=== PATIENT | female | born 1950 | race Caucasian/White ===

== ENCOUNTER 2016-07-29 20:38 | Emergency (ER) | payer MEDICAID ==
[2016-07-29] MEDS ORDERED: ONDANSETRON ODT 4 MG TABLET TL STA (20:53)
[2016-07-29] MEDS ORDERED: DICYCLOMINE 10 MG CAPSULE PO STA (20:54)
[2016-07-29] MEDS ORDERED: DICYCLOMINE 10 MG CAPSULE PO ONE (20:58)
[2016-07-29] MEDS ORDERED: ONDANSETRON ODT 4 MG TABLET ONE (20:58)
== END 2016-07-29 21:26 | disposition home or self-care (01) ==
DX: K52.9 Noninfective gastroenteritis and colitis, unspecified (principal); E11.9 Type 2 diabetes mellitus without complications; Z79.4 Long term (current) use of insulin; Z79.84 Long term (current) use of oral hypoglycemic drugs; E78.00 Pure hypercholesterolemia, unspecified
CPT/HCPCS: 99283; A9270; Q0162

== ENCOUNTER 2017-08-03 17:27 | Emergency (ER) | payer MEDICARE, OTHER ==
--- NOTE | 2017-08-03 18:33 | ED Physician Documentation ---
History of Present Illness - Stated complaint Stated Complaint: R EYE PX - Chief complaint Chief Complaint: Heent - History obtained from History obtained from: Patient - History of Present Illness Timing: Today Pain level max: 0 Pain level now: 0 Improved by: nothing Worsened by: looking L causes diploplia. - Additonal information Additional information: Last week started with diploplia. Referred to ophthalmology for diploplia. Seen by ophthalmology today and dx with cranial nerve III palsy. Sent here to r /o orbital cellulitis with CT scan and for sed rate for temporal arteritis, though clinically ophthalmology doubts this. Review of Systems Ten Systems: 10 systems reviewed and negative Constitutional: denies: Fever, Chills Nose: reports: Congestion, Sinus pressure / pain Throat: denies: Sore throat Cardiac: denies: Chest pain / pressure Respiratory: denies: Cough GI: denies: Nausea, Vomiting, Diarrhea Skin: denies: Rash Musculoskeletal: denies: Neck pain, Back pain Neurologic: denies: Headache PD PAST MEDICAL HISTORY - Past Medical History Cardiovascular: High cholesterol Endocrine/Autoimmune: Type 2 diabetes - Past Surgical History Past Surgical History: Yes General: Cholecystectomy - Present Medications Home Medications: Ambulatory Orders Medication Instructions Recorded Confirmed Gabapentin 300 mg PO DAILY 06/27/14 07/29/16 Metformin HCl [Fortamet] 1,000 mg ORAL DAILY 06/27/14 07/29/16 Pravastatin Sodium 20 mg ORAL DAILY 06/27/14 07/29/16 Dicyclomine [Bentyl] 10 mg PO QID #12 capsule 07/29/16 Insulin Glargine [Lantus] 20 units SQ DAILY PM 07/29/16 07/29/16 Insulin Glulisine [Apidra] 14 units SQ TID 07/29/16 07/29/16 Ondansetron Odt [Zofran] 4 mg TL Q6H PRN #14 tablet 07/29/16 - Allergies Allergies/Adverse Reactions: Allergies Allergy/AdvReac Type Severity Reaction Status Date / Time No Known Drug Allergies Allergy Verified 07/29/16 20:47 - Social History Does the pt smoke?: No Smoking Status: Never smoker Does the pt drink ETOH?: No Does the pt have substance abuse?: No - Immunizations Immunizations are current?: Yes - POLST Patient has POLST: No PD ED PE NORMAL - Vitals Vital signs reviewed: Yes - General General: Alert and oriented X 3, No acute distress - HEENT HEENT: Moist mucous membranes - Neck Neck: Supple, no meningeal sign - Cardiac Cardiac: RRR, Strong equal pulses - Respiratory Respiratory: No respiratory distress, Clear bilaterally - Abdomen Abdomen: Soft, Non tender, Non distended - Derm Derm: Warm and dry - Neuro Neuro: Alert and oriented X 3, Other (R eye cranial nerve III palsy) - Psych Psych: Normal mood, Normal affect Results - Vitals Vitals: Vital Signs - 24 hr 08/03/17 08/03/17 08/03/17 17:40 20:22 20:42 Temperature 36.4 C L 36.8 C Heart Rate 88 79 Respiratory 17 16 Rate Blood Pressure 155/71 H 171/75 H O2 Saturation 98 98 Oxygen O2 Source Room air - Labs Labs: Laboratory Tests 08/03/17 08/03/17 08/03/17 18:24 18:24 18:24 WBC 9.1 RBC 4.80 Hgb 12.7 Hct 38.7 MCV 80.7 L MCH 26.5 L MCHC 32.9 RDW 13.6 Plt Count 221 MPV 8.3 Neut # 5.1 Lymph # 3.0 Powell # 0.7 Eos # 0.2 Baso # 0.1 Absolute Nucleated RBC 0.00 Nucleated RBC % 0.0 ESR 19 Sodium 135 Potassium 3.5 Chloride 98 L Carbon Dioxide 28 Anion Gap 9.0 BUN 11 Creatinine 0.7 Estimated GFR (MDRD) 84 L Glucose 330 H Calcium 9.2 C-Reactive Protein 1.2 H - Rads (name of study) CT orbits Radiology: Prelim report reviewed, EMP read contemporaneously, See rad report ( Visualized intracranial contents are unremarkable. No evidence of intraorbital or periorbital cellulitis. Intraorbital contents are also unremarkable) PD MEDICAL DECISION MAKING - ED course Complexity details: reviewed results, re-evaluated patient, considered differential, d/w patient, d/w family ED course: Patient is a 67-year-old female who presents to the emergency department with her right eye cranial nerve III palsy for the past week. Unclear etiology. Has been followed by several specialists for this. She was sent here to rule out orbital cellulitis. No evidence of orbital cellulitis on clinical exam, CT scan. Also no evidence of temporal arteritis. She is very well-appearing, nontoxic. Would recommend further evaluation with her doctor. Patient and family counseled regarding signs and symptoms for which I believe and urgent re- evaluation would be necessary. Patient with good understanding of and agreement to plan and is comfortable going home at this time This document was made in part using voice recognition software. While efforts are made to proofread this document, sound alike and grammatical errors may occur. Neurological exam is otherwise normal, normal gait. No evidence of stroke Departure - Departure Disposition: 01 Home, Self Care Clinical Impression: Cranial nerve III palsy Qualifiers: Laterality: right Qualified Code(s): H49.01 - Third [oculomotor] nerve palsy, right eye Condition: Good Follow-Up: your,doctor in 3 days [Other] Comments: There is no sign of infection on your CT scan today. Follow-up with your telehealth nurse educator and primary care provider for further care. Discharge Date/Time: 08/03/17 20:43
[2017-08-03 18:36] LABS: BASOPHILS # (AUTO) 0.1 10^3/uL (0.0-0.1); EOSINOPHILS # (AUTO) 0.2 10^3/uL (0.0-0.7); EOSINOPHILS % (AUTO) 1.7 %; HGB - HEMOGLOBIN 12.7 g/dL (12.0-16.0); LYMPHOCYTES % (AUTO) 33.1 %; MEAN CORPUSCULAR HEMOGLOBIN 26.5 pg (27.0-31.0); MEAN CORPUSCULAR HGB CONC 32.9 g/dL (32.0-36.0); MEAN CORPUSCULAR VOLUME 80.7 fL (81.0-99.0); MEAN PLATELET VOLUME 8.3 fL (7.9-10.8); MONOCYTES # (AUTO) 0.7 10^3/uL (0.0-1.0); MONOCYTES % (AUTO) 8.2 %; NEUTROPHILS # (AUTO) 5.1 10^3/uL (1.5-6.6); PLT - PLATELET COUNT 221 10^3/uL (130-450); RED CELL DISTRIBUTION WIDTH 13.6 % (12.0-15.0); WHITE BLOOD COUNT 9.1 x10^3/uL (4.8-10.8)
[2017-08-03 18:49] LABS: CALCIUM 9.2 mg/dL (8.5-10.3); CREATININE 0.7 mg/dL (0.4-1.0); CRP - C-REACTIVE PROTEIN 1.2 mg/dL (0-1.0)
[2017-08-03] MEDS ORDERED: IOPAMIDOL-300 100 ML VIAL ONE (19:19)
[2017-08-03] MEDS ORDERED: IOPAMIDOL-300 100 ML VIAL IVP ONE (19:38)
--- NOTE | 2017-08-03 20:21 | CT Preliminary Report ---
Exam: CT ORBITS W/ Impression: Visualized intracranial contents are relatively unremarkable. No evidence of an intraorbital or periorbital cellulitis. Intraorbital contents are unremarkable by C T. SITE ID: [id number]
--- NOTE | 2017-08-03 20:33 | CT Report ---
EXAM: CT MAXILLOFACIAL WITH CONTRAST CLINICAL HISTORY: Right third nerve palsy, concern for orbital cellulitis. COMPARISON: None. TECHNIQUE: Axial images were acquired of the face after administration of intravenous contrast. Coron al and Sagittal reconstructions are created from source data. In accordance with CT protocol optimization, one or more of the following dose reduction techniques w ere utilized for this exam: automated exposure control, adjustment of mA and/or KV based on patient s ize, or use of iterative reconstructive technique. FINDINGS: Visualized intracranial contents show no masses. Ventricular size is normal. Orbits are normal in size, shape, and position. Optic nerves are normal. Extraocular muscles are norm al. No intraconal abnormalities. No evident abnormal enhancement or appearance of either cavernous sinus. Fairly extensive arterial calcification is demonstrated through the siphon. Mastoids are clear. Paranasal sinuses are unremarkable. Upper and lower lids are relatively unremarkable. IMPRESSION: Visualized intracranial contents are relatively unremarkable. No convincing evidence of an intraorbital or periorbital cellulitis. Intraorbital contents are unrema rkable by CT. Referring Provider Line: [phone] SITE ID: [id number]
[2017-08-03 20:42] VITALS: BP 171/75
== END 2017-08-03 20:43 | disposition home or self-care (01) ==
LOC: ED 17:27
DX: H49.01 Third [oculomotor] nerve palsy, right eye (principal); E78.00 Pure hypercholesterolemia, unspecified; E11.9 Type 2 diabetes mellitus without complications; Z79.4 Long term (current) use of insulin
CPT/HCPCS: 36415; 70481; 80048; 85025; 85651; 86140; 99283; 99284; Q9967

== ENCOUNTER 2017-08-07 20:43 | Emergency (ER) | payer MEDICARE, OTHER ==
--- NOTE | 2017-08-07 23:52 | ED Physician Documentation ---
PD HPI HEADACHE - Stated complaint Stated Complaint: HEADACHE/VOMITING - Chief complaint Chief Complaint: Neuro - History obtained from History obtained from: Patient - History of Present Illness Timing - onset: How many weeks ago (2) Timing - details: Gradual onset, Constant Pain level now: 6 Location: Front, Right, Other (pain is actually medial to right eye and not teodoro headache per se; she denies eye pain) Quality: Aching Associated symptoms: Nausea, Vision changes (diplopia). No: Fever, Vomiting, Weakness, Numbness Improved by: Nothing Worsened by: Other (no exacerbating factors) Similar symptoms before: Diagnosis (CN III palsy) Recently seen: Emergency Dept - Additional information Additional information: patient has had diplopia for two weeks, was evaluated by ophthalmology and subsequently evaluated in this emergency department for days ago at which time she had CT of the orbits, which was unremarkable. She has a follow-up appointment scheduled in two days with the edge grinder machine. She returns the emergency department at this time for worsening pain around the right eye Review of Systems Constitutional: reports: Reviewed and negative Eyes: reports: Other (diplopia). denies: Loss of vision, Decreased vision, Photophobia Nose: denies: Rhinorrhea / runny nose, Congestion, Sinus pressure / pain Throat: denies: Sore throat Neurologic: reports: Headache. denies: Generalized weakness, Focal weakness, Numbness PD PAST MEDICAL HISTORY - Past Medical History Cardiovascular: High cholesterol Endocrine/Autoimmune: Type 2 diabetes - Past Surgical History Past Surgical History: Yes General: Cholecystectomy - Present Medications Home Medications: Ambulatory Orders Medication Instructions Recorded Confirmed Gabapentin 300 mg PO DAILY 06/27/14 07/29/16 Metformin HCl [Fortamet] 1,000 mg ORAL DAILY 06/27/14 07/29/16 Pravastatin Sodium 20 mg ORAL DAILY 06/27/14 07/29/16 Dicyclomine [Bentyl] 10 mg PO QID #12 capsule 07/29/16 Insulin Glargine [Lantus] 20 units SQ DAILY PM 07/29/16 07/29/16 Insulin Glulisine [Apidra] 14 units SQ TID 07/29/16 07/29/16 Ondansetron Odt [Zofran] 4 mg TL Q6H PRN #14 tablet 07/29/16 - Allergies Allergies/Adverse Reactions: Allergies Allergy/AdvReac Type Severity Reaction Status Date / Time No Known Drug Allergies Allergy Verified 08/07/17 21:22 - Social History Does the pt smoke?: No Smoking Status: Never smoker Does the pt drink ETOH?: No Does the pt have substance abuse?: No - Immunizations Immunizations are current?: Yes - POLST Patient has POLST: No PD ED PE NORMAL - Vitals Vital signs reviewed: Yes - General General: Alert and oriented X 3, No acute distress, Well developed/nourished - HEENT HEENT: Other (right CN III palsy: right eye exhibits lateral deviation and slightly enlarged pupil (1-2 mm larger diameter compared to left)) - Neck Neck: Supple, no meningeal sign - Neuro Neuro: Alert and oriented X 3, No motor deficit, No sensory deficit PD ED PE EXPANDED - Neuro Neuro: Alert and Oriented X 3, CN deficit (right III) Results - Vitals Vitals: Oxygen O2 Source Room air - Rads (name of study) CTA head Radiology: Prelim report reviewed, See rad report PD MEDICAL DECISION MAKING - ED course Complexity details: reviewed old records, reviewed results, re-evaluated patient , considered differential, d/w patient ED course: D/w Dr. Vela (patient cannot recall the name of the edge grinder machine who evaluated her, but she says it was [facility]; Dr. Vela is hand inserter operator for [facility]). She recommends CTA head. Results of this were then discussed ( specifically, 2mm aneurysm noted); agrees with plan, which is to discharge patient and have patient keep f/u appointment as scheduled for tomorrow. there is no evidence of aneurysm rupture, and thus options for treatment can wait for outpatient f/u. Departure - Departure Disposition: 01 Home, Self Care Clinical Impression: Intracerebral aneurysm Cranial nerve III palsy Qualifiers: Laterality: right Qualified Code(s): H49.01 - Third [oculomotor] nerve palsy, right eye Condition: Good Instructions: ED Double Vision Comments: Follow up with your edge grinder machine tomorrow as scheduled. Discharge Date/Time: 08/08/17 04:00
[2017-08-08] MEDS ORDERED: oxyCOD/ACETAMIN 5 MG/325 MG TABLET PO STA (00:18)
[2017-08-08] MEDS ORDERED: oxyCODONE/ACET 5/325 Prepack 4 PO STA (00:18)
[2017-08-08] MEDS ORDERED: IOPAMIDOL-300 100 ML VIAL ONE (01:22)
[2017-08-08] MEDS ORDERED: ONDANSETRON 4 MG/2 ML VIAL IVP STA (01:50)
[2017-08-08] MEDS ORDERED: SODIUM CHLORIDE 0.9% 500 ML IV STA (01:51)
[2017-08-08] MEDS ORDERED: IOPAMIDOL-300 100 ML VIAL IVP ONE (01:53)
--- NOTE | 2017-08-08 02:35 | CT Preliminary Report ---
Exam: CT HEAD ANGIO IMPRESSION: 1. No acute intracranial process or abnormal brain parenchymal enhancement. 2. Suspect 2 x 2 mm left posterior communicating segment ICA aneurysm. 3. 50% stenosis of the right supraclinoid ICA due to atherosclerosis. 4. Patent remaining intracranial arteries. [facility] SITE ID: [id number]
--- NOTE | 2017-08-08 02:45 | CT Report ---
EXAM: CT ANGIOGRAM HEAD CT SCAN OF THE HEAD WITHOUT AND WITH CONTRAST EXAM DATE: 08/08/2017 01:58 AM CLINICAL HISTORY: CN III palsy, headache. COMPARISON: Orbit CT from 08/13/2017. TECHNIQUE: - CT Scan Head: Using a multidetector scanner, axial images were acquired from the foramen magnum to the skull vertex prior to and following contrast administration. - CT Angiogram: Using a multidetector scanner, high-resolution axial images were acquired from the sk ull base through vertex following rapid infusion of intravenous contrast. Reformats: Multiplanar MIP reformats were reconstructed. Nascet criteria used for stenosis measurement. IV Contrast: 80 mL of Isovue 300. In accordance with CT protocol optimization, one or more of the following dose reduction techniques w ere utilized for this exam: automated exposure control, adjustment of mA and/or KV based on patient s ize, or use of iterative reconstructive technique. FINDINGS: NON-CONTRAST HEAD: Parenchyma: No intraparenchymal hemorrhage. No evidence of mass, midline shift, or CT findings of inf arction. Yi-white differentiation is distinct. Extraaxial Spaces: Normal for age. No subdural or epidural collections identified. Ventricles: Normal in size and position. Sinuses and orbits: Postsurgical changes from cataract extractions are noted in the globes. The paran talya and mastoid sinuses are not opacified. Bones: No evidence of fracture or calvarial defect. Other: Mild intracranial atherosclerosis is noted. POST-CONTRAST HEAD: No abnormal enhancement. There is normal contrast opacification in the dural venous sinuses. The internal carotid arteries are patent from the superior cervical to the supraclinoid portions. Vinod cified plaque is present in the bilateral carotid siphons resulting in right supraclinoid ICA measuri ng 50%. A 2 x 2 mm inferiorly directed outpouching from the posterior communicating segment of the le ft ICA is noted (image 61, series 14) just proximal to the takeoff for the anterior choroidal artery, suspicious for an aneurysm. The bilateral A1, A2, M1, and M2 segments are patent. A normal caliber anterior communicating artery is identified. In the posterior circulation, the bilateral V4 segments are patent but demonstrate focal stenosis on the right measuring 50% and even less on the left. The PICAs are well-demonstrated. The basilar arter y is widely patent throughout its course to the terminus. There is normal contrast opacification in t he superior cerebellar and posterior cerebral arteries. The right posterior communicating artery is p resent. IMPRESSION: 1. No acute intracranial process or abnormal brain parenchymal enhancement. 2. Suspect 2 x 2 mm left posterior communicating segment ICA aneurysm. 3. 50% stenosis of the right supraclinoid ICA due to atherosclerosis. 4. Patent remaining intracranial arteries. [facility] Referring Provider Line: [phone] SITE ID: [id number]
[2017-08-08 03:55] VITALS: BP 175/81
== END 2017-08-08 04:00 | disposition home or self-care (01) ==
LOC: ED 20:43
DX: I67.1 Cerebral aneurysm, nonruptured (principal); H49.01 Third [oculomotor] nerve palsy, right eye
CPT/HCPCS: 70496; 96361; 96374; 99283; 99284; A9270; Q9967

== ENCOUNTER 2018-07-25 17:59 | Emergency (ER) | payer MEDICARE, MEDICAID ==
[2018-07-25] MEDS ORDERED: MECLIZINE 12.5 MG TABLET PO STA (18:29)
--- NOTE | 2018-07-25 18:33 | ED Physician Documentation ---
PD HPI FOCAL NEURO - Stated complaint Stated Complaint: DIZZY - Chief complaint Chief Complaint: Neuro - History obtained from History obtained from: Patient - History of Present Illness Timing - onset: Today (Since noon she feels like she is spinning especially after she gets up or turns her head. She is noticed some strange sounds in her right ear. No weakness, numbness, tingling of the extremities. No chest pain or trouble breathing. Her blood sugar was in the 200s earlier today.) Review of Systems Constitutional: denies: Fever, Chills Eyes: denies: Loss of vision, Decreased vision Ears: reports: Ear pain, Foreign body. denies: Loss of hearing, Drainage/discharge Nose: denies: Rhinorrhea / runny nose Throat: denies: Sore throat PD PAST MEDICAL HISTORY - Past Medical History Cardiovascular: High cholesterol Endocrine/Autoimmune: Type 2 diabetes - Past Surgical History Past Surgical History: Yes General: Cholecystectomy - Present Medications Home Medications: Ambulatory Orders Medication Instructions Recorded Confirmed Gabapentin 300 mg PO DAILY 06/27/14 07/25/18 Metformin HCl [Fortamet] 1,000 mg ORAL DAILY 06/27/14 07/25/18 Insulin Glargine [Lantus] 20 units SQ DAILY PM 07/29/16 07/25/18 Insulin Glulisine [Apidra] 14 units SQ TID 07/29/16 07/25/18 Losartan Potassium 1 tab PO DAILY 07/25/18 07/25/18 Meclizine HCl 25 mg PO Q6H PRN #20 tab.chew 07/25/18 Pravastatin Sodium 1 tab PO DAILY 07/25/18 07/25/18 - Allergies Allergies/Adverse Reactions: Allergies Allergy/AdvReac Type Severity Reaction Status Date / Time No Known Drug Allergies Allergy Verified 07/25/18 18:06 - Social History Does the pt smoke?: No Smoking Status: Never smoker Does the pt drink ETOH?: No Does the pt have substance abuse?: No - Immunizations Immunizations are current?: Yes - POLST Patient has POLST: No PD ED PE NORMAL - Vitals Vital signs reviewed: Yes - General General: Alert and oriented X 3, No acute distress - HEENT HEENT: PERRL, EOMI (nystagmus on left), Other (FB in R ear canal) - Neck Neck: Supple, no meningeal sign, No bony TTP - Cardiac Cardiac: RRR, No murmur - Respiratory Respiratory: No respiratory distress, Clear bilaterally - Abdomen Abdomen: Normal bowel sounds, Soft, Non tender - Back Back: No CVA TTP, No spinal TTP - Derm Derm: Normal color, Warm and dry - Extremities Extremities: No edema, No calf tenderness / cord - Neuro Neuro: Alert and oriented X 3, merchandise director 2-12 intact, Normal speech, Other (normal finger-nose/heel to da silva testing.) Eye Opening: Spontaneous Motor: Obeys Commands Verbal: Oriented GCS Score: 15 - Psych Psych: Normal mood, Normal affect Results - Vitals Vitals: Vital Signs - 24 hr 07/25/18 18:04 Temperature 36.7 C Heart Rate 76 Respiratory 16 Rate Blood Pressure 181/70 H O2 Saturation 96 Oxygen O2 Source Room air - Labs Labs: Laboratory Tests 07/25/18 07/25/18 18:41 18:41 WBC 7.6 RBC 4.44 Hgb 12.4 Hct 35.6 L MCV 80.1 L MCH 28.0 MCHC 34.9 RDW 13.6 Plt Count 288 MPV 8.0 Neut # (Auto) 3.6 Lymph # (Auto) 3.1 [place] # (Auto) 0.7 Eos # (Auto) 0.2 Baso # (Auto) 0.1 Absolute Nucleated RBC 0.01 Nucleated RBC % 0.1 Sodium 135 Potassium 3.1 L Chloride 95 L Carbon Dioxide 30 Anion Gap 10.0 BUN 9 Creatinine 0.6 Estimated GFR (MDRD) 100 Glucose 231 H Calcium 8.9 Total Bilirubin 0.2 AST 18 ALT 23 Alkaline Phosphatase 83 Total Protein 7.8 Albumin 3.6 Globulin 4.2 Albumin/Globulin Ratio 0.9 L Lipase 25 Procedures - FB removal FB location: Ear (right) Removal method: Foreceps FB removal aftercare: Patient tolerated well, Removed successfully (It was a grass seed) PD MEDICAL DECISION MAKING - ED course ED course: This is a 68-year-old woman with a history and physical examination consistent with peripheral vertigo. She has no cerebellar findings other than nystagmus on far leftward gaze. She did have a foreign object in the right ear which was removed, I suspect this was an incidental finding but she had noticed it. She felt better after meclizine and was able to ambulate without issues. Potassium was slightly low and it was repleted orally. Departure - Departure Disposition: Home, Self Care Clinical Impression: Vertigo Condition: Good Record reviewed to determine appropriate education?: Yes Instructions: ED Vertigo Unspecified Prescriptions: Meclizine HCl 25 mg PO Q6H PRN #20 tab.chew PRN Reason: Dizziness Comments: Return for new or worsening symptoms, Follow-up with your doctor tomorrow or Sunday. Your blood pressure was elevated today on check into the emergency department. This does not mean that you have hypertension, it is a common phenomenon to come to the emergency department and have elevated blood pressure. I recommend that you see your primary care physician within the week to have it rechecked when you are feeling better.
[2018-07-25 18:49] LABS: BASOPHILS # (AUTO) 0.1 10^3/uL (0.0-0.1); BASOPHILS % (AUTO) 1.1 %; EOSINOPHILS # (AUTO) 0.2 10^3/uL (0.0-0.7); EOSINOPHILS % (AUTO) 2.9 %; HGB - HEMOGLOBIN 12.4 g/dL (12.0-16.0); LYMPHOCYTES # (AUTO) 3.1 10^3/uL (1.5-3.5); LYMPHOCYTES % (AUTO) 40.2 %; MEAN CORPUSCULAR HGB CONC 34.9 g/dL (32.0-36.0); MEAN CORPUSCULAR VOLUME 80.1 fL (81.0-99.0); MONOCYTES # (AUTO) 0.7 10^3/uL (0.0-1.0); MONOCYTES % (AUTO) 8.8 %; NEUTROPHILS # (AUTO) 3.6 10^3/uL (1.5-6.6); PLT - PLATELET COUNT 288 10^3/uL (130-450); RED BLOOD COUNT 4.44 10^6/uL (4.20-5.40); RED CELL DISTRIBUTION WIDTH 13.6 % (12.0-15.0); WHITE BLOOD COUNT 7.6 x10^3/uL (4.8-10.8)
[2018-07-25 19:02] LABS: ALBUMIN 3.6 g/dL (3.2-5.5); ALBUMIN/GLOBULIN RATIO 0.9 (1.0-2.2); BILIRUBIN,TOTAL 0.2 mg/dL (0.2-1.0); CALCIUM 8.9 mg/dL (8.5-10.3); CREATININE 0.6 mg/dL (0.4-1.0); TOTAL PROTEIN 7.8 g/dL (6.7-8.2)
[2018-07-25] MEDS ORDERED: POTASSIUM BICARB 25 MEQ TABLET PO STA (19:06)
[2018-07-25 19:44] VITALS: BP 180/72
== END 2018-07-25 19:48 | disposition home or self-care (01) ==
LOC: ED 17:59
DX: H81.399 Other peripheral vertigo, unspecified ear (principal); T16.1XXA Foreign body in right ear, initial encounter; X58.XXXA Exposure to other specified factors, initial encounter; E11.9 Type 2 diabetes mellitus without complications; E87.6 Hypokalemia; E78.00 Pure hypercholesterolemia, unspecified; Z79.4 Long term (current) use of insulin
CPT/HCPCS: 36415; 69200; 80053; 83690; 85025; 99283

== ENCOUNTER 2019-02-08 16:06 | Emergency (ER) | payer MEDICARE, MEDICAID ==
--- NOTE | 2019-02-08 16:14 | ED Physician Documentation ---
PD HPI URI - Stated complaint Stated Complaint: FLU SYMPTOMS - Chief complaint Chief Complaint: Fever - History obtained from History obtained from: Patient - History of Present Illness Timing - onset: How many days ago (3-4) Timing duration: Days (3-4) Timing details: Abrupt onset, Still present Associated symptoms: Fever, Chills, Nasal congestion, Other (no rash nor sores, no dysuria.). No: Rhinorrhea, Swollen nodes, Dry cough, NVD Contributing factors: No: Sick contact, Travel (last travel was to [place] in mid November; felt okay on return.) Improves by: Medication (Tylenol helps with fevers/aches some.). No: Rest Worsened by: No: Activity Similar symptoms before: Has not had sx before Recently seen: Not recently seen Review of Systems Constitutional: reports: Fever, Chills, Myalgias, Fatigue Nose: reports: Rhinorrhea / runny nose (clear to white, without blood), Sinus pressure / pain. denies: Congestion Throat: denies: Dental pain / toothache, Oral lesions / sores, Sore throat Cardiac: denies: Chest pain / pressure, Palpitations Respiratory: denies: Dyspnea, Cough, Wheezing GI: denies: Abdominal Pain, Nausea, Vomiting, Diarrhea : denies: Dysuria, Frequency, Discharge Skin: denies: Rash, Lesions Musculoskeletal: reports: Back pain (lower back, but not hurting with movement). denies: Neck pain Neurologic: reports: Headache. denies: Focal weakness, Numbness, Near syncope, Confused, Altered mental status PD PAST MEDICAL HISTORY - Past Medical History Cardiovascular: High cholesterol Endocrine/Autoimmune: Type 2 diabetes - Past Surgical History Past Surgical History: Yes General: Cholecystectomy - Present Medications Home Medications: Ambulatory Orders Medication Instructions Recorded Confirmed Gabapentin 300 mg PO DAILY 06/27/14 07/25/18 Metformin HCl [Fortamet] 1,000 mg ORAL DAILY 06/27/14 07/25/18 Insulin Glargine [Lantus] 20 units SQ DAILY PM 07/29/16 07/25/18 Insulin Glulisine [Apidra] 14 units SQ TID 07/29/16 07/25/18 Losartan Potassium 1 tab PO DAILY 07/25/18 07/25/18 Meclizine HCl 25 mg PO Q6H PRN #20 tab.chew 07/25/18 Pravastatin Sodium 1 tab PO DAILY 07/25/18 07/25/18 Cephalexin [Keflex] 500 mg PO Q6H #28 capsule 02/08/19 - Allergies Allergies/Adverse Reactions: Allergies Allergy/AdvReac Type Severity Reaction Status Date / Time No Known Drug Allergies Allergy Verified 02/08/19 16:12 - Social History Does the pt smoke?: No Smoking Status: Never smoker Does the pt drink ETOH?: No Does the pt have substance abuse?: No - Immunizations Immunizations are current?: Yes - POLST Patient has POLST: No PD ED PE NORMAL - Vitals Vital signs reviewed: Yes - General General: Alert and oriented X 3, No acute distress, Well developed/nourished - HEENT HEENT: Ears normal, Pharynx benign - Neck Neck: Supple, no meningeal sign, No adenopathy - Cardiac Cardiac: RRR (mildly tachycardic), No murmur - Respiratory Respiratory: Clear bilaterally - Abdomen Abdomen: Normal bowel sounds, Soft, Non distended, No organomegaly, Other ( minimally tender left suprapubic) - Female Female : Deferred - Rectal Rectal: Deferred - Back Back: No CVA TTP - Derm Derm: Normal color, Warm and dry - Extremities Extremities: No deformity, No tenderness to palpate, Normal ROM s pain, No edema, No calf tenderness / cord - Neuro Neuro: Alert and oriented X 3, No motor deficit, Normal speech Results - Vitals Vitals: Vital Signs - 24 hr 02/08/19 16:08 Temperature 39.1 C H Heart Rate 115 H Respiratory 24 Rate Blood Pressure 196/72 H O2 Saturation 98 Oxygen O2 Source Room air - Labs Labs: Laboratory Tests 02/08/19 02/08/19 02/08/19 16:47 16:47 16:47 WBC 12.1 H RBC 4.40 Hgb 10.8 L Hct 35.2 L MCV 80.0 L MCH 24.5 L MCHC 30.7 L RDW 14.8 Plt Count 266 MPV 9.6 Neut # (Auto) 9.6 H Lymph # (Auto) 1.4 L Cowley # (Auto) 0.9 Eos # (Auto) 0.1 Baso # (Auto) 0.0 Absolute Nucleated RBC 0.00 Nucleated RBC % 0.0 Sodium 136 Potassium 3.7 Chloride 98 L Carbon Dioxide 25 Anion Gap 13.0 BUN 11 Creatinine 0.8 Estimated GFR (MDRD) 72 L Glucose 280 H Lactic Acid 1.2 Calcium 9.2 Total Bilirubin 0.4 AST 12 ALT 13 Alkaline Phosphatase 74 Total Protein 8.4 H Albumin 3.7 Globulin 4.7 H Albumin/Globulin Ratio 0.8 L Lipase 23 Urine Color Urine Clarity Urine pH Ur Specific Alfred Urine Protein Urine Glucose (UA) Urine Ketones Urine Occult Blood Urine Nitrite Urine Bilirubin Urine Urobilinogen Ur Leukocyte Esterase Urine RBC Urine WBC Urine WBC Clumps Ur Squamous Epith Cells Urine Bacteria Ur Microscopic Review Urine Culture Comments Influenza A (Rapid) Influenza B (Rapid) 02/08/19 02/08/19 16:47 16:47 WBC RBC Hgb Hct MCV MCH MCHC RDW Plt Count MPV Neut # (Auto) Lymph # (Auto) Cowley # (Auto) Eos # (Auto) Baso # (Auto) Absolute Nucleated RBC Nucleated RBC % Sodium Potassium Chloride Carbon Dioxide Anion Gap BUN Creatinine Estimated GFR (MDRD) Glucose Lactic Acid Calcium Total Bilirubin AST ALT Alkaline Phosphatase Total Protein Albumin Globulin Albumin/Globulin Ratio Lipase Urine Color YELLOW Urine Clarity HAZY Urine pH 6.0 Ur Specific Alfred 1.015 Urine Protein 100 H Urine Glucose (UA) >=1000 H Urine Ketones NEGATIVE Urine Occult Blood MODERATE H Urine Nitrite POSITIVE H Urine Bilirubin NEGATIVE Urine Urobilinogen 0.2 (NORMAL) Ur Leukocyte Esterase NEGATIVE Urine RBC 6-10 H Urine WBC 11-25 H Urine WBC Clumps PRESENT Ur Squamous Epith Cells RARE Squamous Urine Bacteria Moderate H Ur Microscopic Review INDICATED Urine Culture Comments INDICATED Influenza A (Rapid) Negative Influenza B (Rapid) Negative - Rads (name of study) chest xray Radiology: Prelim report reviewed, See rad report (no infiltrates) PD MEDICAL DECISION MAKING - ED course Complexity details: reviewed results, re-evaluated patient (She is feeling much better with some fluids and Toradol. Her white count is elevated. Lactate is negative. She does not have any infiltrates on chest x-ray. Her flu test is negative. There is signs of urinary tract infection on her urine test. This with the lower abdominal slight discomfort and some low back pain would suggest pyelonephritis. However she does not seem sick enough to need to be hospit alized and her preference would be to go home. Shared decision is for discharge home with medication.), considered differential (Her symptoms sound flulike and we can do a flu test. Otherwise she has had some nasal congestion and sinus pressure with clear to white drainage. Consider sinus infection. Will check a chest x-ray and a urine test as well for occult infections there. She does have a fever for the last several days and general malaise but is been drinking fluids without any vomiting or diarrhea. She does not have any focal symptoms otherwise. Will check markers for infection of the white count and lactate. Can obtain blood cultures as well.), d/w patient Departure - Departure Disposition: Home, Self Care Clinical Impression: UTI (urinary tract infection) Qualifiers: Urinary tract infection type: acute pyelonephritis Qualified Code(s): N10 - Acute pyelonephritis Fever Qualifiers: Fever type: unspecified Qualified Code(s): R50.9 - Fever, unspecified Condition: Stable Record reviewed to determine appropriate education?: Yes Instructions: ED Kidney Infec Female Follow-Up: Leeanne Vaughan MD [Primary Care Provider] - Prescriptions: Cephalexin [Keflex] 500 mg PO Q6H #28 capsule Comments: You do have signs of urinary tract infection and so we will treat this with cephalexin as directed for a week. Stay well-hydrated. Tylenol or ibuprofen for fevers or pains. Your flu test and chest x-ray are normal. I would presume you will be improving over the next day or 2. Return if not improved in that timeframe or if you are worsening.
[2019-02-08] MEDS ORDERED: KETOROLAC 15 MG/ML VIAL IVP STA (16:29)
[2019-02-08] MEDS ORDERED: SODIUM CHLORIDE 0.9% 1,000 ML IV ONE (16:29)
[2019-02-08] MEDS ORDERED: ACETAMINOPHEN 325 MG TABLET PO STA (16:30)
[2019-02-08 16:58] LABS: BILIRUBIN,URINE NEGATIVE (NEGATIVE); CLARITY,URINE HAZY (CLEAR); GLUCOSE, URINE (UA) >=1000 mg/dL (NEGATIVE); KETONES,URINE (UA) NEGATIVE (NEGATIVE); LEUKOCYTE ESTERASE, URINE NEGATIVE (NEGATIVE); NITRITE,URINE POSITIVE (NEGATIVE); OCCULT BLOOD,URINE MODERATE (NEGATIVE); PROTEIN,URINE 100 mg/dL (NEGATIVE); UROBILINOGEN,URINE 0.2 (NORMAL) E.U./dL (NORMAL)
[2019-02-08 17:00] LABS: BASOPHILS % (AUTO) 0.2 %; EOSINOPHILS # (AUTO) 0.1 10^3/uL (0.0-0.7); EOSINOPHILS % (AUTO) 0.9 %; HGB - HEMOGLOBIN 10.8 g/dL (12.0-16.0); LYMPHOCYTES # (AUTO) 1.4 10^3/uL (1.5-3.5); LYMPHOCYTES % (AUTO) 11.8 %; MEAN CORPUSCULAR HEMOGLOBIN 24.5 pg (27.0-31.0); MEAN CORPUSCULAR HGB CONC 30.7 g/dL (32.0-36.0); MEAN PLATELET VOLUME 9.6 fL (7.9-10.8); MONOCYTES # (AUTO) 0.9 10^3/uL (0.0-1.0); MONOCYTES % (AUTO) 7.7 %; NEUTROPHILS # (AUTO) 9.6 10^3/uL (1.5-6.6); NEUTROPHILS % (AUTO) 79.1 %; PLT - PLATELET COUNT 266 10^3/uL (130-450); RED CELL DISTRIBUTION WIDTH 14.8 % (12.0-15.0); WHITE BLOOD COUNT 12.1 x10^3/uL (4.8-10.8)
[2019-02-08 17:08] LABS: BACTERIA,URINE Moderate /HPF (None Seen); SQUAMOUS EPITHELIAL CELL,UR RARE Squamous (<= Few); WBC CLUMPS,URINE PRESENT
[2019-02-08] MEDS ORDERED: cefTRIAXone 1 GM VIAL IVP STA (17:09)
[2019-02-08 17:10] LABS: ALBUMIN 3.7 g/dL (3.2-5.5); ALBUMIN/GLOBULIN RATIO 0.8 (1.0-2.2); BILIRUBIN,TOTAL 0.4 mg/dL (0.2-1.0); CALCIUM 9.2 mg/dL (8.5-10.3); CREATININE 0.8 mg/dL (0.4-1.0); TOTAL PROTEIN 8.4 g/dL (6.7-8.2)
--- NOTE | 2019-02-08 17:41 | XRAY Report ---
Reason: fever and congestion Procedure Date: 02/08/2019 Accession Number: [id number] / [id number] Procedure: XR - Chest 2 View X-Ray CPT Code: 86559 FULL RESULT: EXAM: CHEST RADIOGRAPHY EXAM DATE: 02/08/2019 05:01 PM. CLINICAL HISTORY: Fever and congestion. COMPARISON: CHEST 2 VIEW PA/LAT 06/27/2014 7:04 PM. TECHNIQUE: 2 views. FINDINGS: Lungs/Pleura: Lung volumes are low. There is a focal density in the anterior left upper lobe which persists and appears unchanged. Right lung is clear. Negative for pleural effusion. Mediastinum: Heart size is normal. Trachea is midline. Other: None. IMPRESSION: 1. No acute airspace disease. Chronic density in the anterior left upper lobe appears unchanged, likely chronic scarring. [facility]
[2019-02-08 17:58] VITALS: BP 122/58
== END 2019-02-08 18:21 | disposition home or self-care (01) ==
LOC: ED 16:06
DX: N10 Acute pyelonephritis (principal); R09.81 Nasal congestion; E11.9 Type 2 diabetes mellitus without complications; Z79.4 Long term (current) use of insulin
CPT/HCPCS: 36415; 71046; 80053; 81001; 83605; 83690; 85025; 87040; 87086; 87275; 87276; 96361; 96374; 96375; 99283; 99284; A9270; 81003